=== PATIENT | male | born 1995 ===

== ENCOUNTER 2017-03-26 09:42 | Emergency (ER) | payer OTHER ==
[2017-03-26 09:46] VITALS: BP 117/68; PULSE 69; RESP 18; TEMP 98; O2SAT 99
[2017-03-26 09:58] VITALS: BMI 27.3
--- NOTE | 2017-03-26 10:11 | ED PDOC ---
HPI: General Adult Time Seen by Provider: 03/26/17 10:04 Chief Complaint (Nursing): Abnormal Skin Integrity Chief Complaint (Provider): abrasion to right hand History Per: Patient History/Exam Limitations: no limitations Onset/Duration Of Symptoms: Mins Have you had recent travel within the past 21 days to any of the following countries: [place], [place], [place] or [place]?: No Current Symptoms Are (Timing): Still Present Additional History Per: Patient Additional Complaint(s): The pt is a 21yo male, presents to the ED for evaluation due to exposure to bodily fluids. 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 Pt. was scratched on the wrist. Spit from person he was holding down may have went into his face and eye. Pt is concerned he may be at risk for contamination. Pt denies any pertinent medical history and offers no additional medical complaints. Has no pain, weakness, headaches, dizziness, numbness, tingles, dyspnea, chest pain. Past Medical History Reviewed: Historical Data, Nursing Documentation, Vital Signs Vital Signs: Last Vital Signs Temp 98.0 F 03/26/17 09:45 Pulse 69 03/26/17 09:45 Resp 18 03/26/17 09:45 BP 117/68 03/26/17 09:45 Pulse Ox 99 03/26/17 10:15 - Medical History PMH: No Chronic Diseases Denies: Chronic Kidney Disease - Surgical History Surgical History: No Surg Hx - Family History Family History: States: Unknown Family Hx - Social History Alcohol: None Drugs: Denies - Home Medications Home Medications: Ambulatory Orders Medication Instructions Recorded No Known Home Med 02/12/16 - Allergies Allergies/Adverse Reactions: Allergies Allergy/AdvReac Type Severity Reaction Status Date / Time No Known Allergies Allergy Verified 03/09/15 18:29 Review of Systems ROS Statement: Except As Marked, All Systems Reviewed And Found Negative Eyes: Positive for: Other (pt concerned of possible contamination through saliva of another pt) Musculoskeletal: Positive for: Other (abrasion to right wrist) Physical Exam - Reviewed Nursing Documentation Reviewed: Yes Vital Signs Reviewed: Yes - Physical Exam Appears: Positive for: Well, Non-toxic, No Acute Distress Head Exam: Positive for: ATRAUMATIC, NORMAL INSPECTION, NORMOCEPHALIC Skin: Positive for: Normal Color Eye Exam: Positive for: Normal appearance, EOMI, PERRL ENT: Positive for: Normal ENT Inspection. Negative for: Pharyngeal Erythema, Tonsillar Exudate Neck: Positive for: Normal, Painless ROM, Supple Cardiovascular/Chest: Positive for: Regular Rate, Rhythm Respiratory: Positive for: Normal Breath Sounds. Negative for: Respiratory Distress Back: Positive for: Normal Inspection. Negative for: L CVA Tenderness, R CVA Tenderness Extremity: Positive for: Normal ROM, Other (0.5cm superficial abrasion on right dorsal medial wrist. No subcutaneous exposure; Nontender.). Negative for: Tenderness, Deformity Neurologic/Psych: Positive for: Alert, Oriented - ECG O2 Sat by Pulse Oximetry: 99 (RA) Pulse Ox Interpretation: Normal - Progress ED Course And Treament: 1116: Pt. refused HIV and Hepatitis prophylaxis. States he has had his shots for hepatitis B. Washed area on wrist with water and soap extensively. Pt. stable. AAOx3. Appropriate labs and protocol followed for exposure per hospital protocol. Will dc and fu with [facility] Tuesday. No needle exposure. Medical Decision Making Medical Decision Making: Time: 1005 Impression: Superficial abrasion to right wrist Plan: -- Clean and dress wound --Reassess Scribe Attestation: Documented by Fern Mendez acting as a scribe for Mario Alberto Bentley MD. Provider Attestation: All medical record entries made by the Scribe were at my direction and personally dictated by me. I have reviewed the chart and agree that the record accurately reflects my personal performance of the history, physical exam, medical decision making, and the department course for this patient. I have also personally directed, reviewed, and agree with the discharge instructions and disposition. Disposition - Clinical Impression Clinical Impression: Exposure to blood or body fluid, Abrasion - Patient ED Disposition Is Patient to be Admitted: No Counseled Patient/Family Regarding: Diagnosis, Need For Followup - Disposition Referrals: [facility],Employee [Non-Staff] - 03/28/17 Disposition: Routine/Home Disposition Time: 11:19 Condition: STABLE Additional Instructions: Return if not better in 3 days. Instructions: Body Substance Exposure (ED), Abrasion (ED)
== END 2017-03-26 11:46 | disposition home or self-care (01) ==
LOC: H.ER 09:42
DX: Z77.21 Contact with and (suspected) exposure to potentially hazardous body fluids (principal); S60.811A Abrasion of right wrist, initial encounter; X58.XXXA Exposure to other specified factors, initial encounter; Y92.239 Unspecified place in hospital as the place of occurrence of the external cause; Y99.0 Civilian activity done for income or pay

== ENCOUNTER 2017-04-12 03:49 | Emergency (ER) | payer OTHER ==
[2017-04-12 03:50] VITALS: BMI 28.1
[2017-04-12 03:55] VITALS: BP 121/75; PULSE 80; RESP 16; TEMP 99.9; O2SAT 98
[2017-04-12] MEDS: Sodium Chloride 0.9% 1,000 ML IV STA (04:26)
[2017-04-12] MEDS: Iohexol 240 (50 ml) PO ONE (04:28)
--- NOTE | 2017-04-12 04:34 | ED PDOC ---
HPI: Abdomen Time Seen by Provider: 04/12/17 03:55 Chief Complaint (Nursing): Abdominal Pain Chief Complaint (Provider): Abdominal pain, fever, diarrhea History Per: Patient History/Exam Limitations: no limitations Onset/Duration Of Symptoms: Days Outside of [place] travel?: No Current Symptoms Are (Timing): Still Present Quality Of Discomfort: Cramping Associated Symptoms: Fever, Nausea, Diarrhea, Loss Of Appetite Additional Complaint(s): Dann Hernandez, a 21 year old male, presents to the ED complaining of abdominal pain, fever and diarrhea he has had for 2 days. The patient states that he has had recurrent diarrhea for 2 days, with 5 episodes of diarrhea daily (non bloody but mucoid in appearance). He said he has also been experiencing fever, chills and crampy pains which he states started after he ate a burger. The patient said he used ibuprofen and pepto-bismol but they only gave mild relief. Past Medical History Reviewed: Historical Data, Nursing Documentation Vital Signs: Last Vital Signs Temp 99.9 F H 04/12/17 03:51 Pulse 80 04/12/17 03:51 Resp 16 04/12/17 03:51 BP 121/75 04/12/17 03:51 Pulse Ox 98 04/12/17 06:42 - Medical History PMH: No Chronic Diseases Denies: Chronic Kidney Disease - Surgical History Surgical History: No Surg Hx - Family History Family History: States: Unknown Family Hx - Social History Current smoker - smoking cessation education provided: No Ex-Smoker (has not smoked in the last 12 months): No Alcohol: Occasional Drugs: Denies - Home Medications Home Medications: Ambulatory Orders Medication Instructions Recorded Dicyclomine [Bentyl] 20 mg PO Q12 PRN #20 tab 04/12/17 metroNIDAZOLE [Flagyl] 500 mg PO Q12 #14 tab 04/12/17 - Allergies Allergies/Adverse Reactions: Allergies Allergy/AdvReac Type Severity Reaction Status Date / Time No Known Allergies Allergy Verified 03/09/15 18:29 Review of Systems Constitutional: Positive for: Fever, Chills Gastrointestinal: Positive for: Nausea, Abdominal Pain, Diarrhea, Other (Poor appetite) Physical Exam - Reviewed Nursing Documentation Reviewed: Yes Vital Signs Reviewed: Yes - Physical Exam Appears: Positive for: Non-toxic, No Acute Distress Head Exam: Positive for: ATRAUMATIC, NORMOCEPHALIC Skin: Positive for: Normal Color, Warm, Dry Eye Exam: Positive for: Normal appearance, EOMI, PERRL ENT: Positive for: Other (Mucous membranes dry) Neck: Positive for: Normal, Painless ROM, Supple Cardiovascular/Chest: Positive for: Regular Rate, Rhythm, Chest Non Tender. Negative for: Tachycardia Respiratory: Positive for: Normal Breath Sounds. Negative for: Wheezing, Respiratory Distress Gastrointestinal/Abdominal: Positive for: Normal Exam, Bowel Sounds, Soft, Tenderness (Diffuse abdomen tenderness) Back: Positive for: Normal Inspection. Negative for: L CVA Tenderness, R CVA Tenderness Extremity: Positive for: Normal ROM. Negative for: Deformity, Swelling Neurologic/Psych: Positive for: Alert, Oriented - Laboratory Results Result Diagrams: 04/12/17 04:30 04/12/17 04:30 - ECG O2 Sat by Pulse Oximetry: 98 (RA) Pulse Ox Interpretation: Normal Medical Decision Making Medical Decision Makin Initial Impression: Diarrheal disease and fever Initial Plan: * CT ABD&PELVIS PO & IV contrast * CMP * CBC * Bentyl 20 mg PO * NS 1000ml IV 1000 mls/hr * Omnipaque 50mL PO * Blood culture * Urinalysis Labs reviewed no clinically significant abnormalities except mild elevation of white blood cell count. Patient 0628 CT Abdomen and Pelvis With Intravenous Contrast IMPRESSION: 1. Probable mild enterocolitis. Consider inflammatory or infectious etiologies. 2. Incidental/non-acute findings are described above 0637 Patient reports improvement of symptoms and is stable for discharge. Patient will be sent home with Rx for flagyl and bentyl and was told to follow up with PMD in 2 days. Dx: Enterocolitis Rx: Falgy and Bentyl Condition: Improved Follow up with PMD in 2 days Scribe Attestation Documented by Jazmyne Montanez acting as a scribe for Ezequiel Rose MD. Provider Attestation: All medical record entries made by the Scribe were at my direction and personally dictated by me. I have reviewed the chart and agree that the record accurately reflects my personal performance of the history, physical exam, medical decision making, and the department course for this patient. I have also personally directed, reviewed, and agree with the discharge instructions and disposition. Disposition - Clinical Impression Clinical Impression: Enterocolitis - Patient ED Disposition Is Patient to be Admitted: No Counseled Patient/Family Regarding: Studies Performed, Diagnosis, Need For Followup, Rx Given - Disposition Referrals: Kimberly Elise MD [Primary Care Provider] - Disposition: Routine/Home Disposition Time: 06:37 Condition: STABLE Prescriptions: Dicyclomine [Bentyl] 20 mg PO Q12 PRN #20 tab PRN Reason: abdominal pain/diarrhea metroNIDAZOLE [Flagyl] 500 mg PO Q12 #14 tab Instructions: Infectious Colitis (ED) Forms: [facility] ED School/Work Excuse
[2017-04-12 04:55] LABS: BASO % 0.2 % (0.0-2.0); EOS % 0.1 % (0.0-4.0); HEMATOCRIT 49.3 % (35.0-51.0); LYMPH # 0.6 K/uL (1.0-4.3); LYMPH % 4.6 % (20.0-40.0); MEAN CELL VOLUME 88.8 fl (80.0-94.0); MEAN CORPUSCULAR HEMOGLOBIN 29.6 pg (27.0-31.0); MEAN CORPUSCULAR HGB CONC 33.4 g/dL (33.0-37.0); MEAN PLATELET VOLUME 9.9 fl (7.2-11.7); MONO # 0.6 K/uL (0.0-0.8); MONO % 4.3 % (0.0-10.0); NEUT # 11.7 K/uL (1.8-7.0); NEUT % 90.8 % (50.0-75.0); NRBC % 0.1 % (0.0-0.0); PLATELET COUNT 119 K/uL (130-400); WHITE BLOOD COUNT 12.9 K/uL (4.8-10.8)
[2017-04-12 05:10] LABS: RBC URINE 2 /hpf (0-3); URINE BILIRUBIN NEGATIVE (NEGATIVE); URINE BLOOD NEGATIVE (NEGATIVE); URINE COLOR YELLOW (YELLOW); URINE GLUCOSE (UA) NEG (Normal); URINE KETONE NEGATIVE (NEGATIVE); URINE LEUKOCYTE ESTERASE NEG Leu/uL (Negative); URINE PROTEIN 30 mg/dL (NEGATIVE); URINE UROBILINOGEN 0.2-1.0 mg/dL (0.2-1.0); WBC URINE 3 /hpf (0-5)
[2017-04-12 05:12] LABS: ALB/GLOB RATIO 1.7 (1.0-2.1); ALKALINE PHOSPHATASE 76 U/L (38-126); ALT/SGPT 59 U/L (21-72); AST/SGOT 28 U/L (17-59); BILIRUBIN,TOTAL 0.7 mg/dl (0.2-1.3); BLOOD UREA NITROGEN 9 mg/dl (9-20); CALCIUM 9.4 mg/dL (8.4-10.2); CARBON DIOXIDE 26 mmol/L (22-30); CHLORIDE 102 mmol/L (98-107); GFR AFRICAN-AMERICAN > 60; GLUCOSE,RANDOM 104 mg/dL (75-110); POTASSIUM 3.9 MMOL/L (3.6-5.0); SODIUM 139 mmol/l (132-148); TOTAL PROTEIN 6.9 G/DL (6.3-8.2)
[2017-04-12] MEDS ORDERED: Iohexol 300 100 ML IJ ONE (05:38)
[2017-04-12] MEDS ORDERED: Sodium Chloride 0.9% 50 ML IV ONE (05:39)
--- NOTE | 2017-04-12 06:28 | CT ---
EXAM: CT Abdomen and Pelvis With Intravenous Contrast CLINICAL HISTORY: 21 years old, male; Pain; Abdominal pain; Localized; Lower; Additional info: Abd pain TECHNIQUE: Axial computed tomography images of the abdomen and pelvis with intravenous contrast. This CT exam was performed using one or more of the following dose reduction techniques: automated exposure control, adjustment of the mA and/or kV according to patient size, and/or use of iterative reconstruction technique. Coronal and sagittal reformatted images were created and reviewed. CONTRAST: 95 mL of [id number] administered intravenously. COMPARISON: No relevant prior studies available. FINDINGS: Limitations: Motion artifact - mild. Lower thorax: No acute findings. ABDOMEN: Liver: Fatty infiltration. Gallbladder and bile ducts: No calcified stones. No ductal dilation. Pancreas: No ductal dilation. No mass. Spleen: No splenomegaly. Adrenals: No mass. Kidneys and ureters: No mass. No hydronephrosis. Stomach and bowel: Apparent mild mural thickening of terminal ileum, cecum. Mild mural thickening vs underdistention of descending, sigmoid colon. No obstruction. Appendix: Normal caliber. No definite inflammation. PELVIS: Bladder: Unremarkable. Reproductive: Unremarkable as visualized. ABDOMEN and PELVIS: Intraperitoneal space: No significant fluid collection. No free air. Bones/joints: No acute fracture. Soft tissues: Unremarkable. Vasculature: Unremarkable. No abdominal aortic aneurysm. Lymph nodes: Several subcentimeter short axis mesenteric lymph nodes, nonspecific. IMPRESSION: 1. Probable mild enterocolitis. Consider inflammatory or infectious etiologies. 2. Incidental/non-acute findings are described above.
[2017-04-12] MEDS ORDERED: metroNIDAZOLE 500mg/100ml NS 100 ML IVPB ONE (06:33)
[2017-04-12] MEDS: metroNIDAZOLE 500mg/100ml NS 100 ML IVPB STA (06:41)
[2017-04-12 07:38] LABS: NEUTROPHIL 76 % (42-75); TOTAL CELLS COUNTED 100
== END 2017-04-12 07:04 | disposition home or self-care (01) ==
LOC: H.ER 03:49
DX: K52.9 Noninfective gastroenteritis and colitis, unspecified (principal); R19.7 Diarrhea, unspecified; R50.9 Fever, unspecified; D72.829 Elevated white blood cell count, unspecified; Z87.891 Personal history of nicotine dependence

== ENCOUNTER 2017-07-23 23:40 | Emergency (ER) | payer OTHER ==
[2017-07-24 00:12] VITALS: BMI 25.8
[2017-07-24 00:16] VITALS: BP 129/55; PULSE 54; RESP 16; TEMP 98.9; O2SAT 99
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
--- NOTE | 2017-07-24 10:09 | RAD ---
PROCEDURE: Radiographs of the Left Shoulder HISTORY: trauma COMPARISON: TheNo prior. FINDINGS: BONES: Normal. No fracture. JOINTS: Normal. Glenohumeral and acromioclavicular joints preserved. No osteoarthritis. SOFT TISSUES: Normal. OTHER FINDINGS: None. IMPRESSION: No evidence of acute displaced fracture nor dislocation
== END 2017-07-24 02:33 | disposition home or self-care (01) ==
LOC: H.ER 23:40
DX: M75.32 Calcific tendinitis of left shoulder (principal)

== ENCOUNTER 2017-08-24 06:57 | Emergency (ER) | payer OTHER ==
[2017-08-24 06:57] VITALS: BMI 25.8
[2017-08-24 07:25] VITALS: BP 125/92; PULSE 81; RESP 16; TEMP 99; O2SAT 99
== END 2017-08-24 09:20 | disposition home or self-care (01) ==
LOC: H.ER 06:57
DX: T14.8XXA Other injury of unspecified body region, initial encounter (principal); Y04.0XXA Assault by unarmed brawl or fight, initial encounter; Y92.238 Other place in hospital as the place of occurrence of the external cause; Y99.0 Civilian activity done for income or pay; Z77.21 Contact with and (suspected) exposure to potentially hazardous body fluids